=== PATIENT | female | born 1985 | race Caucasian/White ===

== ENCOUNTER 2021-11-06 16:22 | Emergency (ER) | payer OTHER, SELFPAY ==
[2021-11-06] VITALS (16 sets, daily range): BP systolic 111–127; BP diastolic 56–73; PULSE 71–90; RESP 16–27; TEMP 36.4; O2SAT 97–100
--- NOTE | ~2021-11-06 | XR_ITS ---
EXAMINATION: XR chest 2V DATE: 11/06/2021 17:08 INDICATION: Central chest pain TECHNIQUE: PA and lateral views of the chest are obtained. COMPARISON: 07/19/2016 FINDINGS: The lungs are free of acute opacities. There is no pleural effusion or pneumothorax. The ca rdiomediastinal silhouette is normal. There is mild thoracic spondylosis. IMPRESSION: 1. No acute cardiopulmonary abnormality. Reviewed, dictated and finalized at location F. 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
--- NOTE | 2021-11-06 16:23 | ECG_ITS ---
Measurements Intervals [place] Rate: 76 P: 43 AL: 149 QRS: 20 QRSD: 72 T: 46 QT: 377 QTc: 426 Interpretive Statements SINUS RHYTHM LOW QRS VOLTAGE IN PRECORDIAL LEADS BASELINE ARTIFACT- I, II, III, AVR, AVL, AVF, V2 BORDERLINE ECG Electronically Signed On 11-06-2021 19:15:42 NUMERICAL CONTROL LATHE OPERATOR by Randal Ferrera D.O.
[2021-11-06 16:59] LABS: Basophils Absolute Auto 0.1 K/mm3 (0.0-0.1); Basophils Percent Auto 0.3 % (0.2-1.2); Eosinophils Absolute Auto 0.2 K/mm3 (0-0.3); Eosinophils Percent Auto 1.1 % (0-4.4); Hematocrit 42.4 % (37.0-47.0); Immature Granulocyte Absolute 0.06 K/mm3 (0.00-0.031); Immature Granulocyte Percent A 0.4 % (0-0.5); Lymphocytes Absolute Auto 2.69 K/mm3 (0.9-3.2); Lymphocytes Percent Auto 17.9 % (18.3-44.2); Mean Corpuscular Hemoglobin 29.2 pg (26-34); Mean Corpuscular Volume 88.5 fl (80-100); Mean Platelet Volume 10.2 fl (7.4-10.4); Monocytes Absolute Auto 0.8 K/mm3 (0.1-0.6); Monocytes Percent Auto 5.6 % (2.6-8.5); Neutrophils Absolute Auto 11.2 K/mm3 (1.3-6.7); Neutrophils Percent Auto 74.7 % (45.5-73.1); Platelet Count Result 263 k/mm3 (150-375); Red Blood Count 4.79 M/mm3 (4.2-5.4); Red Cell Distribution Width 13.7 % (11.5-14.5)
[2021-11-06 17:09] LABS: INR 0.9; Prothrombin Time 12.1 Seconds (11.1-14.7)
[2021-11-06 17:10] LABS: Partial Thromboplastin Time 24.3 SECONDS (22.3-36.8)
[2021-11-06 17:13] LABS: Alanine Aminotransferase 61 U/L (4-35); Albumin Level 4.5 g/dL (3.5-5.1); Alkaline Phosphatase 110 U/L (38-126); Anion Gap 8 mmol/L (8-16); Aspartate Amino Transferase 95 U/L (14-36); Bilirubin,Total 0.6 mg/dL (0.2-1.3); Blood Urea Nitrogen 12 mg/dL (7-17); Calcium 9.4 mg/dL (8.4-10.2); Carbon Dioxide 26 mmol/L (22-30); Chloride 103 mmol/L (98-107); Estimated CRCL calculation 108 ml/min; Estimated Glomerular Filt Rate > 60; Glucose 120 mg/dL (65-110); Lipase 65 U/L (23-300); Potassium 3.9 mmol/L (3.4-5.0); Sodium 137 mmol/L (137-145)
[2021-11-06 17:24] LABS: Troponin I < 0.012 ng/mL (0.000-0.034)
--- NOTE | 2021-11-06 18:26 | ED.CHESTPAIN ---
HPI - Chest Pain General Chief Complaint: Chest Pain Stated Complaint: CHEST PAIN,PNFUL BREATHING Time Seen by Provider: 11/06/21 18:11 Source: patient and RN notes reviewed Mode of arrival: ambulatory Limitations: no limitations History of Present Illness HPI narrative: Patient is 36 years old white female presents with chest pain, central, started 3 hours prior to arrival to the emergency room. Patient denies any fever, chills, nausea, vomiting, shortness of breath, radiation of pain. Pain is tightness and pressure, patient also denies any aggravating or relieving factors. Patient reports having similar symptoms intermittently over the last 2 years. Been seen by many physician for the same without specific diagnosis. Patient does not smoke or drink, use marijuana occasionally. History of depression and anxiety. Patient is vaccinated for COVID-19 last one was February 2021 Related Data Allergies Allergy/AdvReac Type Severity Reaction Status Date / Time codeine Allergy Mild ITCHY AND Verified 02/09/17 09:17 SHORTNESS OF BREATH Review of Systems Review of Systems: CONSTITUTIONAL: Denies fever, chills, or sweats. EYES: Denies visual changes, redness, or discharge. ENT: Denies rhinorrhea, congestion, sore throat, or otalgia. CARDIOVASCULAR: Denies chest pain, palpitations, or edema. RESPIRATORY: Denies cough or dyspnea. GASTROINTESTINAL: Denies abdominal pain, nausea, vomiting, or diarrhea. GENITOURINARY: Denies dysuria or hematuria. SKIN: Denies rash or itching. MUSCULOSKELETAL: Denies back pain, joint pain, or myalgia. NEUROLOGIC: Denies headache, numbness, or weakness. PSYCHIATRIC: Denies anxiety or depression. Exam Narrative: General appearance: Well-developed, well-nourished Skin: Normal color Head: Normocephalic, nontraumatic Eyes: Clear conjunctiva ENT: Oropharynx normal, ears normal, nose normal Neck: Supple, nontender Chest and respiratory: Airway patent, no respiratory distress, no accessory muscle use Heart: Regular rate/rhythm Abdomen: Soft, nontender, no organomegaly, quiet bowel sounds Vascular: Normal peripheral pulses, normal capillary refill. Musculoskeletal: Normal range of motion, nontender back Neurologic: Alert and oriented ?3, BURRER OPERATOR is normal as tested, no gross motor deficit Course Course Emergency Course: Stable Vital Signs Vital signs: Vital Signs Temperature 36.4 C 11/06/21 16:44 Pulse Rate 80 11/06/21 16:44 Respiratory Rate 16 11/06/21 16:44 Blood Pressure 112/60 11/06/21 16:44 Pulse Oximetry 99 11/06/21 16:44 Temperature 36.4 C 11/06/21 16:44 Pulse Rate 75 11/06/21 19:52 Respiratory Rate 16 11/06/21 19:52 Blood Pressure 126/63 11/06/21 19:52 Pulse Oximetry 99 11/06/21 19:52 MDM - Chest Pain MDM Narrative Medical decision making narrative: Intermittent chest pain for the last 2 years without specific diagnosis. No coronary artery risk factors, depression, anxiety, stress are my concern Differential Diagnosis Differential diagnosis: Likely atypical chest pain Lab Data Result diagrams: 11/06/21 16:51 11/06/21 16:51 Labs: Lab Results 11/06/21 11/06/21 11/06/21 Range/Units 16:51 16:51 16:51 WBC 15.0 H (4.5-10.0) K/mm3 RBC 4.79 (4.2-5.4) M/mm3 Hgb 14.0 (12.0-15.0) g/dL Hct 42.4 (37.0-47.0) % MCV 88.5 (80-100) fl MCH 29.2 (26-34) pg MCHC 33.0 (32-36) g/dl RDW 13.7 (11.5-14.5) % Plt Count 263 (150-375) k/mm3 MPV 10.2 (7.4-10.4) fl Immature Gran % (Auto) 0.4 (0-0.5) % Neut % (Auto) 74.7 H (45.5-73.1) % Lymph % (Auto) 17.9 L (18.3-44.2) % [place] % (Auto) 5.6 (2.6-8.5
[2021-11-06] MEDS: BELLADONNA ALK/PHENOB ELIX 10 ML, MAG HYDROX/ALUMINUM HYD/SIMETH 30 ML, LIDOCAINE HCL 2... PO (18:27)
[2021-11-06 18:28] LABS: D Dimer 0.36 ug/mL (<0.48)
== END 2021-11-06 19:55 | disposition home or self-care (01) ==
PROVIDERS: Family Medicine; Emergency Provider Emergency Medicine
DX: R07.89 Other chest pain (principal); R94.31 Abnormal electrocardiogram [ECG] [EKG]
CPT/HCPCS: 36415; 71046; 80053; 83690; 84484; 85025; 85380; 85610; 85730; 93005; 99284; A9270

== ENCOUNTER 2022-09-16 17:37 | Emergency (ER) | payer OTHER, SELFPAY ==
[2022-09-16 17:56] VITALS: BP 137/81; PULSE 98; RESP 18; TEMP 36.9; O2SAT 100
--- NOTE | 2022-09-16 18:34 | ED.URI ---
HPI - URI/Sore Throat General Chief Complaint: Upper Respiratory Infection Stated Complaint: Sore Throat Time Seen by Provider: 09/16/22 18:34 Source: patient, RN notes reviewed and old records reviewed Mode of arrival: ambulatory Limitations: no limitations History of Present Illness HPI Narrative: 37-year-old female presents to the [facility] with complaints of a sore throat and swollen lymph nodes. Patient reports she thinks she had the flu over the weekend with 102 fever. Notes that her throat was starting to hurt and developed swollen lymph nodes today. Denies any for trouble breathing. Maintaining own secretions. Related Data Home Medications Medication Instructions Recorded Confirmed bupropion HCl 150 mg 24 hr tablet, 150 mg PO DAILY 09/16/22 09/16/22 extended release ergocalciferol (vitamin D2) 1,250 1,250 mcg PO DAILY 09/16/22 09/16/22 mcg (50,000 unit) capsule fluoxetine 60 mg tablet 60 mg PO DAILY 09/16/22 09/16/22 norethindrone acetate 1 mg-ethinyl 1 tablet PO DAILY 09/16/22 09/16/22 estradiol 20 mcg tablet (Microgestin) Allergies Allergy/AdvReac Type Severity Reaction Status Date / Time codeine Allergy Mild ITCHY AND Verified 09/16/22 18:11 SHORTNESS OF BREATH Review of Systems Review of Systems: All systems reviewed & are unremarkable except as noted in HPI and below Constitutional: Constitutional: Reports no additional constitutional complaints, Denies chills and Denies fever(s) Eyes: Eyes: Reports no additional eye complaints ENT: Reports as per HPI and Reports sore throat Cardiovascular: Cardiovascular: Reports no additional cardiovascular complaints Respiratory: Respiratory: Reports no additional respiratory complaints Gastrointestinal: Gastrointestinal: Reports no additional gastrointestinal complaints Musculoskeletal: Musculoskeletal: Reports no additional musculoskeletal complaints Integumentary/Breasts: Skin/Breast: Reports system reviewed and no additional complaints, except as docu Neurologic: Reports system reviewed and no additional complaints, except as documented Psychiatric: Psychiatric: Reports no additional psychiatric complaints Allergic/Immunologic: Allergic/Immunologic: Reports no additional allergic/immunologic complaints PMFSH Comments At the time of my signature, I reviewed and agree with the nursing past medical, surgical, social, and family history. There is no relevant family history pertinent to the patient complaint. Exam Const: General: healthy appearing, comfortable, no acute distress, well developed, alert and well nourished Nutritional Appearance: well nourished and obese Orientation/consciousness: patient oriented x3 Limitations: no limitations HENMT: Head: normal to inspection Ears: external ears normal, TM's normal bilaterally and EAC's normal Face/Nose/Sinus: Normal external nose present Face and sinus: normal facial exam and sinuses nontender Mouth: Yes Normal oral and palatal mucosa present, Yes lip normal, Yes tongue normal and Yes moist mucous membranes Throat: posterior oropharynx normal, uvula midline and tonsils absent Eyes: General: appearance normal, both eyes and all related structures Pupils: Equal, round and reactive pupils present Neck: Neck: normal visual inspection, full ROM, no meningeal signs and lymphadenopathy (Bilateral submandibular) Chest: Chest palpation & inspection: normal inspection of the chest Resp: Effort & Inspection: normal respiratory effort and no use of accessory muscles Auscultation: clear to auscultation bilaterally, no crackles, no rales, no rhonchi and no wheezes Cardio: Rate: regular rate Rhythm: regular rhythm Back/Spine/Pelvis: Cervical Spine: cervical ROM normal and No Cervical spine tenderness Thoracic/Lumbar Spine: thoracic and lumbar spine normal to inspection and thoraco-lumbar ROM normal Skin: General skin exam: normal color Rashes: no rashes Wounds: no wounds Neuro:
== END 2022-09-16 19:15 | disposition home or self-care (01) ==
PROVIDERS: Emergency Provider Nurse Practitioner
DX: J02.9 Acute pharyngitis, unspecified (principal); R59.1 Generalized enlarged lymph nodes
CPT/HCPCS: 36416; 86308; 87081; 87804; 87880; 99213; G0463

== ENCOUNTER 2023-03-12 06:21 | Emergency (ER) | payer BC, SELFPAY ==
[2023-03-12 06:25] VITALS: BP 146/75; PULSE 73; RESP 20; TEMP 36; O2SAT 100
--- NOTE | 2023-03-12 06:45 | ED.GENADULT ---
HPI - General Adult General Chief complaint: Abdominal Pain <Bryan Cooper MD - Last Filed: 03/14/23 08:31> Stated complaint: abdominal pain <Bryan Cooper MD - Last Filed: 03/14/23 08:31> Time Seen by Provider: 03/12/23 07:06 <Bryan Cooper MD - Last Filed: 03/14/23 08:31> History of Present Illness HPI narrative: This is a 37-year-old female presenting ED with a chief complaint of epigastric pain. Patient says that she has been having this pain on and off for many years. Yesterday became acutely worse. It is described as a burning pain in the epigastric area primarily but also in the rest of the abdomen. It is 8 out 10 intensity and constant. She experiences many times in the past. There are no alleviating factors. Sometimes is worse with eating. She has had multiple episodes of nausea and vomiting. She has not taken any medication for symptoms. Patient is a daily marijuana user. She has been to multiple ERs for this over the years and received many CT scans and has never being even answer to why she is having abdominal pain. All she remembers being told is she had mildly elevated liver enzymes. She has never followed up with her primary care physician or seen a GI physician. She denies fever chills diarrhea chest pain difficulty breathing, URI symptoms or symptoms. <Bryan Cooper MD - Last Filed: 03/14/23 08:31> Related Data Home medications: Home Medications Medication Instructions Recorded Confirmed bupropion HCl 150 mg 24 hr tablet, 150 mg PO DAILY 09/16/22 03/12/23 extended release fluoxetine 60 mg tablet 60 mg PO DAILY 09/16/2223 <Bryan Cooper MD - Last Filed: 03/14/23 08:31> Allergies/adverse reactions: Allergies Allergy/AdvReac Type Severity Reaction Status Date / Time codeine Allergy Mild ITCHY AND Verified 03/12/23 06:21 SHORTNESS OF BREATH <Bryan Cooper MD - Last Filed: 03/14/23 08:31> PMFSH Past Medical History Medical History: Medical History Anxiety <Bryan Cooper MD - Last Filed: 03/14/23 08:31> Social History Social History: Social History (Updated 03/12/23 @ 06:48 by Bryan Cooper MD) Social History: Daily marijuana use <Bryan Cooper MD - Last Filed: 03/14/23 08:31> Exam Narrative: APPEARANCE: No apparent distress. Head: atraumatic. EYES: EOMI, NOSE: Atraumatic NECK: Trachea midline RESPIRATORY: No increased rate of breathing CARDIOVASCULAR: RRR, ABDOMINAL: Mild tenderness to palpation in the epigastric area. No guarding/no rebound. Bowel sounds present. MUSCULOSKELETAl: No obvious deformities NEURO: Alert. Moving 4/4 extremities SKIN:: Warm, dry. Normal color PSYCHIATRIC: Normal affect <Bryan Cooper MD - Last Filed: 03/14/23 08:31> Course Course Emergency Course: 0700: Signed out to the oncoming physician pending workup and reevaluation. <Bryan Cooper MD - Last Filed: 03/14/23 08:31> Vital Signs Vital signs: Vital Signs Temperature 96.8 F L 03/12/23 06:25 Pulse Rate 73 03/12/23 06:25 Respiratory Rate 20 03/12/23 06:25 Blood Pressure 146/75 H 03/12/23 06:25 Pulse Oximetry 100 03/12/23 06:25 Oxygen Delivery Room Air 03/12/23 06:25 Temperature 96.8 F L 03/12/23 06:25 Pulse Rate 73 03/12/23 06:25 Respiratory Rate 20 03/12/23 06:25 Blood Pressure 146/75 H 03/12/23 06:25 Pulse Oximetry 100 03/12/23 06:25 Oxygen Delivery Room Air 03/12/23 06:25 <Bryan Cooper MD - Last Filed: 03/14/23 08:31> Vital Signs Temperature 96.8 F L 03/12/23 06:25 Pulse Rate 73 03/12/23 06:25 Respiratory Rate 20 03/12/23 06:25 Blood Pressure 146/75 H 03/12/23 06:25 Pulse Oximetry 100 03/12/23 06:25 Oxygen Delivery Room Air 03/12/23 06:25 Temperature 96.8 F L 03/12/23 06:25 Pulse Rate 73 03/12/23 06:25 Respiratory Rat
[2023-03-12 06:52] LABS: Basophils Percent Auto 0.2 % (0.2-1.2); Eosinophils Percent Auto 0.1 % (0-4.4); Hematocrit 43.1 % (37.0-47.0); Hemoglobin 14.1 g/dL (12.0-15.0); Immature Granulocyte Absolute 0.05 K/mm3 (0.00-0.031); Immature Granulocyte Percent A 0.4 % (0-0.5); Lymphocytes Absolute Auto 1.18 K/mm3 (0.9-3.2); Lymphocytes Percent Auto 9.5 % (18.3-44.2); Mean Corpuscular HGB Conc 32.7 g/dl (32-36); Mean Corpuscular Hemoglobin 30.1 pg (26-34); Mean Corpuscular Volume 92.1 fl (80-100); Mean Platelet Volume 10.2 fl (7.4-10.4); Monocytes Absolute Auto 0.4 K/mm3 (0.1-0.6); Monocytes Percent Auto 2.8 % (2.6-8.5); Neutrophils Absolute Auto 10.8 K/mm3 (1.3-6.7); Platelet Count Result 265 k/mm3 (150-375); Red Blood Count 4.68 M/mm3 (4.2-5.4); Red Cell Distribution Width 13.6 % (11.5-14.5); White Blood Count 12.4 K/mm3 (4.5-10.0)
[2023-03-12] MEDS: MAG HYDROX/AL HYDROX/SIMETH 30 ML UDC PO (06:58)
[2023-03-12] MEDS: HALOPERIDOL LACTATE 5 MG/ML VIAL IV PUSH (06:58)
[2023-03-12] MEDS: FAMOTIDINE 20 MG/2 ML VIAL IV PUSH (06:58)
[2023-03-12] MEDS: SODIUM CHLORIDE 0.9% IV 2,000 ML 999 ML IV CONT (06:58)
[2023-03-12 07:09] LABS: Alanine Aminotransferase 30 U/L (6-35); Albumin Level 4.4 g/dL (3.5-5.1); Alkaline Phosphatase 108 U/L (38-126); Anion Gap 5 mmol/L (8-16); Aspartate Amino Transferase 25 U/L (14-36); Bilirubin,Total 0.7 mg/dL (0.2-1.3); Blood Urea Nitrogen 10 mg/dL (7-17); Carbon Dioxide 28 mmol/L (22-30); Chloride 103 mmol/L (98-107); Estimated CRCL calculation 129 ml/min; Estimated Glomerular Filt Rate > 60; Glucose 123 mg/dL (65-110); Lipase 65 U/L (23-300); Potassium 3.8 mmol/L (3.4-5.0); Sodium 136 mmol/L (137-145)
[2023-03-12 07:18] LABS: Appearance Urine Cloudy (Clear); Bacteria Urine None Seen /hpf; Bilirubin Urine Negative (Negative); Blood Urine Negative (Negative); Color Urine Yellow (Yellow); Glucose Urine UA Negative (Negative); Ketones Urine 2+ mg/dL (Negative); Leukocyte Esterase Ur Negative LEU/UL (Negative); Nitrate Urine Negative (Negative); Non Pathogenic Casts 0-2; Protein Urine Trace mg/dL (Negative); Specific Grav Ur 1.031 (1.001-1.035); Squamous Epithelial Cell Urine Occasional /hpf (Few); WBC Urine 0-5 /hpf; pH Urine 6.5 (5.0-9.0)
[2023-03-12] MEDS: DICYCLOMINE HCL INJ 20 MG/2 ML VIAL IM (07:29)
[2023-03-12] MEDS: ONDANSETRON INJ 4 MG/2 ML VIAL IV PUSH (07:31)
[2023-03-12 07:53] LABS: Add Urine Microscopic? YES
== END 2023-03-12 08:30 | disposition home or self-care (01) ==
PROVIDERS: Emergency Medicine; Emergency Provider Emergency Medicine
DX: K29.70 Gastritis, unspecified, without bleeding (principal); F41.9 Anxiety disorder, unspecified
CPT/HCPCS: 36415; 80053; 81001; 81025; 83690; 85025; 96361; 96372; 96374; 96375; 99284; A9270; J0500; J1630; J2405; J7030